=== PATIENT | female | born 1960 | race Caucasian/White ===

== ENCOUNTER → 2016-05-20 | Outpatient (CLI) | payer BC ==
[~2016-05-20] MED LIST: ADVIN50/60 INH; ALBU1AER9 INH; ASPI81TA28 PO; LORC1TAB PO; MONT1TAB3 PO; ONDA4TAB46 PO; TRAM-10 PO
== END | disposition home or self-care (01) ==
LOC: C.PAPS 14:59
PROVIDERS: ATTEND Obstetrics & Gynecology
DX: Z12.4 Encounter for screening for malignant neoplasm of cervix (principal); D25.9 Leiomyoma of uterus, unspecified

== ENCOUNTER → 2017-04-20 | Outpatient (CLI) | payer OTHER ==
[2017-04-20 13:50] LABS: INFLUENZA B ANTIGEN Neg for Influ B (NEG)
== END | disposition home or self-care (01) ==
LOC: C.LAB1850 11:42
PROVIDERS: ATTEND Internal Medicine Pulmonary Disease
DX: J11.1 Influenza due to unidentified influenza virus with other respiratory manifestations (principal)

== ENCOUNTER 2020-10-28 15:18 | Inpatient (IN) ==
[2020-10-28] MEDS ORDERED: methylPREDNISolone 125 MG/2 ML VIAL IV STA (16:13)
[2020-10-28] MEDS ORDERED: ALBUT/IPRATROP 3MG/0.5MG NEB 3 ML VIAL INH STA (16:13)
[2020-10-28] MEDS ORDERED: BENZONATATE 100 MG CAPSULE PO ONE (16:13)
[2020-10-28] MEDS ORDERED: SODIUM CHLORIDE 0.9% 1000ML 1,000 ML IV ONE (16:15)
[2020-10-28] MEDS ORDERED: ONDANSETRON INJ 2 MG/ML 2 ML VIAL IV STA (16:15)
--- NOTE | 2020-10-28 16:15 | Emergency Department Note ---
Impression & Plan Hypoxia, SOB (shortness of breath), Pneumonia, COVID-19 ED Provider Note NAME: PIERRE ARRIAGA AGE: 60 SEX: F : 1960 ARRIVES VIA: Walk-In INFORMANT: [Patient] ED PROVIDER(S): [Herbert Mckeon MD] CHIEF COMPLAINT: Nausea, vomiting, short of breath HISTORY OF PRESENT ILLNESS: The patient is a 60-year-old female who states that she began having some wheezing and cough and fever last week. She had an outpatient Covid test which was positive. She was given prednisone. The patient states the fever is gone but she is still coughing and wheezing. Her last prednisone dose was yesterday. She has also developed some nausea and vomiting. Patient does feel somewhat short of breath. The patient did receive 2 doses of Covid vaccine in June of this year, she states that she must be a breakthrough case of Covid. She states that she has friends that she was around who have also now tested positive for Covid. The patient is here because of the nausea, vomiting and increasing shortness of breath. She is wondering if she needs something more to care for her Covid infection. REVIEW OF SYSTEMS: See HPI for pertinent positives and negatives. A total of ten systems were reviewed and were otherwise negative. PMHx/PSHx: See Below SOCIAL HISTORY: See Below. PHYSICAL EXAM: GENERAL: Patient is in no acute distress. HEENT: No acute trauma, normocephalic atraumatic, mucous membranes moist, no nasal congestion, no scleral icterus. NECK: No stridor, no adenopathy, no meningismus, trachea is midline. LUNGS: Wheezes bilaterally, no rhonchi, no respiratory distress. HEART: Without murmurs gallops or rubs, regular rate and rhythm. ABDOMEN: Soft, nontender, bowel sounds positive, no hernias, no peritonitis. EXTREMITIES: No cyanosis or edema, full range of motion of all the joints without pain or difficulty, no signs for acute trauma. NEUROLOGIC: Oriented x 3, no acute motor or sensory deficits, no focal weakness. SKIN: No rash, no jaundice, no diaphoresis. DIFFERENTIAL DIAGNOSIS: Reactive airway disease, pneumonia, pneumothorax, COPD, COVID-19, CHF, infection, cardiac ischemia, pulmonary embolism, bronchitis, musculoskeletal, gastrointestinal, as well as other pathologies. EMERGENCY DEPARTMENT COURSE/PROCEDURES: ECG: Indication was shortness of breath. The ECG shows a normal sinus rhythm with a rate of 89. LVH is present. There is some poor R wave progression. There are some T wave inversion in the anterior leads. There is no ST elevation, no PVCs. The QTc is 438. Compared to an ECG from 24 March 2016, the anterior T wave changes have progressed. Continuous Cardiac Monitoring: An order was placed for continuous cardiac monitoring. The monitor shows a rate of 95 with normal sinus rhythm. Critical Care Note: I have personally spent 53 minutes of critical care time in the direct management of this patient. This includes bedside care, interpretation of diagnostic studies, and testing, discussion with consultants, patient, and family members, and other required patient management activities. This 53 minutes is in excess of all separately billable procedures. MEDICAL DECISION MAKING: There is no leukocytosis or concerning anemia. There is a normal platelet count. No coagulopathy. Sodium was low at 131, no kidney failure. No worrisome liver enzyme elevation. ECG showed a sinus rhythm, no acute ischemia. Cardiac enzyme testing x1 is not consistent with acute cardiac injury. Covid testing is negative. Chest film does show a bilateral patchy pneumonia. Chest CT shows the same pneumonia, no PE. The patient was given a DuoNeb, oral Tessalon, IV Solu-Medrol, IV Zofran and IV saline. The patient became hypoxic in the ED. Her O2 saturation dropped to 83%. She was placed on nasal cannula oxygen. The patient is in need of a hospital stay. She is hypoxic with Covid pneumonia. She does have underlying asthma. She is not safe for discharge home. I spoke to the patient and medical case manager. The on-call hospitalist was consulted. Past Med/Surg History Medical History Allergic rhinitis Arrhythmia Asthma uses prn inh 1 x wk Chronic cough Chronic dyspnea Cough variant asthma Esophageal reflux History of endometriosis Hoarseness or changing voice Obesity Seasonal allergies Surgical History History of cholecystectomy History of colonoscopy History of hemorrhoidectomy History of oral surgery History of tonsillectomy History of tooth extraction Family History Other Breast cancer Dyslipidemia Heart disease Hypertension Social History Smoking Status: Never smoker Second Hand Exposure: Yes (previous exposure as a child and used to smoke); Hx Alcohol Use: Yes Alcohol type: hard liquor Hx Substance Use: No Preferred Language: British Communication Ability: Effective Gas Blender Required: No Beliefs That Will Affect Care: None Current Living Situation: Spouse Feels Safe at Home: Yes Assistive Devices: None Allergies Allergies Allergy/AdvReac Type Severity Reaction Status Date / Time Penicillins Allergy Severe difficulty Verified 10/28/20 17:00 breathing,SOB Home Meds Home Medications Medication Instructions Recorded Confirmed cholecalciferol (vitamin D3) 50 1 tab PO QAM 02/13/18 10/28/20 mcg (2,000 unit) tablet (Vitamin D3) ascorbic acid (vitamin C) 1,000 mg 1 gm PO DAILY tab 06/14/19 10/28/20 tablet cyanocobalamin (vitamin B-12) 1,000 mcg PO DAILY 06/14/19 10/28/20 1,000 mcg capsule Previous Rx's Medication Instructions Recorded albuterol sulfate 90 mcg/actuation 2 puffs INHALATION Q6H PRN #18 gm 11/29/18 aerosol inhaler (Ventolin HFA) ipratropium 0.5 mg-albuterol 3 mg 3 ml INHALATION QID PRN #90 ml 01/11/20 (2.5 mg base)/3 mL nebulization soln nebulizers (AeroEclipse II #1 ea 01/11/20 Nebulizer) omeprazole 20 mg capsule,delayed 20 mg PO DAILY #30 cap 03/31/20 release fluticasone propionate 50 2 spray INTRANASAL DAILY #15.8 ml 07/16/20 mcg/actuation nasal spray,suspension (Flonase Allergy Relief) fluticasone furoate 100 1 inh INHALATION DAILY #60 ea 09/18/20 mcg-vilanterol 25 mcg/dose inhalation powder (Breo Ellipta) montelukast 10 mg tablet See Rx Instructions .ROUTE 09/18/20 .COMPLEX #30 tab Incentive Spirometer #1 ea 10/24/20 azithromycin 250 mg tablet See Rx Instructions PO .COMPLEX #6 10/24/20 tab Results & Data (ED) Vital Signs Vital Signs - 24 hr 10/28/20 15:23 10/28/20 16:41 10/28/20 17:00 Temperature 37 C Temperature Source Temporal Artery Scan Pulse Rate 95 H 91 H 92 H Pulse Rate [Left Finger] Pulse Rate from SpO2 Sensor 91 H 91 H Respiratory Rate 18 20 18 Respiratory Effort / Characteristics Non-Labored Spontaneous Respiratory Depth Normal Respiratory Pattern Regular Blood Pressure 164/94 H 119/81 118/82 Blood Pressure Mean 117 93 94 Blood Pressure Position Sitting Pulse Oximetry 94 93 96 Oxygen Delivery Method Room Air Oxygen Flow Rate Sepsis Recent Fever Within 48 Hours No Sepsis New/Unexplained Change in Mental Status N/A Sepsis Action Taken by Nursing No Action Required Oxygen Flow Rate - Titration Pulse Oximetry Post Tiitration 10/28/20 17:01 10/28/20 17:19 10/28/20 18:20 Temperature Temperature Source Pulse Rate Pulse Rate [Left Finger] 84 Pulse Rate from SpO2 Sensor Respiratory Rate 20 20 Respiratory Effort / Characteristics Non-Labored Non-Labored Spontaneous Respiratory Depth Respiratory Pattern Blood Pressure Blood Pressure Mean Blood Pressure Position Pulse Oximetry 93 100 83 L Oxygen Delivery Method Room Air Room Air Room Air Oxygen Flow Rate 0 Sepsis Recent Fever Within 48 Hours Sepsis New/Unexplained Change in Mental Status Sepsis Action Taken by Nursing Oxygen Flow Rate - Titration 2 Pulse Oximetry Post Tiitration 95 10/28/20 18:30 10/28/20 19:00 10/28/20 19:30 Temperature Temperature Source Pulse Rate 90 92 H 85 Pulse Rate [Left Finger] Pulse Rate from SpO2 Sensor 90 89 85 Respiratory Rate 21 17 19 Respiratory Effort / Characteristics Respiratory Depth Respiratory Pattern Blood Pressure 150/91 H 142/96 H 145/99 H Blood Pressure Mean 110 111 114 Blood Pressure Position Pulse Oximetry 87 L 95 96 Oxygen Delivery Method Room Air Nasal Cannula Nasal Cannula Oxygen Flow Rate 2 2 2 Sepsis Recent Fever Within 48 Hours Sepsis New/Unexplained Change in Mental Status Sepsis Action Taken by Nursing Oxygen Flow Rate - Titration Pulse Oximetry Post Tiitration Home Medications Current Medication List: was personally reviewed by me Laboratory Data Attestation: I reviewed the patient's lab results. Result diagrams: 10/28/20 16:46 10/28/20 16:46 Lab Results 10/28/20 10/28/20 10/28/20 Range/Units 16:23 16:23 16:46 WBC 5.56 (4.8-10.8) K/uL RBC 4.50 (4.2-5.4) M/uL Hgb 13.0 (12.0-16.0) g/dL Hct 38.9 (37-47) % MCV 86.4 (80-100) fL MCH 28.9 (25-34) pg MCHC 33.4 (32-36) g/dL RDW Std Deviation 45.2 (36.4-46.3) fL RDW Coeff of Evan 14.3 (11.5-14.5) % Plt Count 191 (130-400) K/uL MPV 8.8 (7.4-10.4) fL Immature Gran % (Auto) 0.2 % Neut % (Auto) 67.7 % Lymph % (Auto) 23.6 % [place] % (Auto) 8.1 % Eos % (Auto) 0.2 % Baso % (Auto) 0.2 % Neut # (Auto) 3.77 (1.4-6.5) K/uL Lymph # (Auto) 1.31 (1.2-3.4) K/uL [place] # (Auto) 0.45 (0.11-0.59) K/uL Eos # (Auto) 0.01 (0-0.5) K/uL Baso # (Auto) 0.01 (0-0.2) K/uL Immature Gran # (Auto) 0.01 (0.00-0.02) K/uL PT (9.0-12.0) Seconds INR (0.9-1.1) APTT (21.0-31.0) Seconds PTT Ratio Sodium (136-145) mmol/L Potassium (3.5-5.1) mmol/L Chloride (98-107) mmol/L Carbon Dioxide (21-32) mmol/L Anion Gap (3-11) BUN (7-18) mg/dl Creatinine (0.6-1.2) mg/dl Est Cr Clr Drug Dosing ml/min Est GFR ( Amer) ml/min Est GFR (Non-Af Amer) ml/min BUN/Creatinine Ratio (10-20) Glucose (70-99) mg/dl Calcium (8.5-10.1) mg/dl Magnesium (1.8-2.4) mg/dl Total Bilirubin (0.2-1) mg/dl AST (15-37) U/L ALT (12-78) U/L Alkaline Phosphatase (45-117) U/L Troponin I (0-0.045) ng/ml NT-Pro-B Natriuret Pep (0-900) pg/ml Total Protein (6.4-8.2) gm/dl Albumin (3.4-5.0) gm/dl Globulin (2.5-4.0) gm/dl Albumin/Globulin Ratio (0.9-2) COVID-19 Eval Order Covid19 at [facility] SARS-CoV-2 (PCR) POSITIVE A* (Negative) 10/28/20 10/28/20 Range/Units 16:46 17:41 WBC (4.8-10.8) K/uL RBC (4.2-5.4) M/uL Hgb (12.0-16.0) g/dL Hct (37-47) % MCV (80-100) fL MCH (25-34) pg MCHC (32-36) g/dL RDW Std Deviation (36.4-46.3) fL RDW Coeff of Evan (11.5-14.5) % Plt Count (130-400) K/uL MPV (7.4-10.4) fL Immature Gran % (Auto) % Neut % (Auto) % Lymph % (Auto) % [place] % (Auto) % Eos % (Auto) % Baso % (Auto) % Neut # (Auto) (1.4-6.5) K/uL Lymph # (Auto) (1.2-3.4) K/uL [place] # (Auto) (0.11-0.59) K/uL Eos # (Auto) (0-0.5) K/uL Baso # (Auto) (0-0.2) K/uL Immature Gran # (Auto) (0.00-0.02) K/uL PT 10.1 (9.0-12.0) Seconds INR 1.0 (0.9-1.1) APTT 28.2 (21.0-31.0) Seconds PTT Ratio 1.1 Sodium 131 L (136-145) mmol/L Potassium 3.5 (3.5-5.1) mmol/L Chloride 104 (98-107) mmol/L Carbon Dioxide 26 (21-32) mmol/L Anion Gap 1.0 L (3-11) BUN 6 L (7-18) mg/dl Creatinine 0.49 L (0.6-1.2) mg/dl Est Cr Clr Drug Dosing 157.9 ml/min Est GFR ( Amer) 121.9 ml/min Est GFR (Non-Af Amer) 105.2 ml/min BUN/Creatinine Ratio 13.1 (10-20) Glucose 111 H (70-99) mg/dl Calcium 8.0 L (8.5-10.1) mg/dl Magnesium 2.1 (1.8-2.4) mg/dl Total Bilirubin 0.8 (0.2-1) mg/dl AST 37 (15-37) U/L ALT 67 (12-78) U/L Alkaline Phosphatase 95 (45-117) U/L Troponin I < 0.015 (0-0.045) ng/ml NT-Pro-B Natriuret Pep 46 (0-900) pg/ml Total Protein 7.5 (6.4-8.2) gm/dl Albumin 3.4 (3.4-5.0) gm/dl Globulin 4.1 H (2.5-4.0) gm/dl Albumin/Globulin Ratio 0.8 L (0.9-2) COVID-19 Eval Order SARS-CoV-2 (PCR) (Negative) Administered Medications Discontinued Medications Albuterol (Albut/Ipratrop 3mg/0.5mg Neb 3 Ml Vial) 3 ml INH NOW STA Stop: 10/28/20 16:14 Last Admin: 10/28/20 17:19 Dose: 3 ml Documented by: [id number] Benzonatate (Benzonatate 100 Mg Capsule) 100 mg PO NOW ONE Stop: 10/28/20 16:14 Last Admin: 10/28/20 16:35 Dose: 100 mg Documented by: [id number] Sodium Chloride (Nss 1000ml) 1,000 mls @ 999 mls/hr IV .Q1H1M ONE Stop: 10/28/20 17:15 Last Infusion: 10/28/20 18:46 Dose: 0 mls/hr Documented by: [id number] Admin: 10/28/20 16:31 Dose: 999 mls/hr Documented by: [id number] Ioversol (Optiray 320 125ml) 118 ml IV ONCE ONE Stop: 10/28/20 19:41 Last Admin: 10/28/20 19:41 Dose: 118 ml Documented by: [id number] Methylprednisolone (Methylprednisolone 125 Mg/2 Ml Vial) 60 mg IV NOW STA Stop: 10/28/20 16:14 Last Admin: 10/28/20 16:32 Dose: 60 mg Documented by: [id number] Ondansetron HCl (Ondansetron Inj 2 Mg/Ml 2 Ml Vial) 4 mg IV NOW STA Stop: 10/28/20 16:16 Last Admin: 10/28/20 16:32 Dose: 4 mg Documented by: [id number] Imaging Data Radiologist's Impression: Chest X-Ray 10/28/20 16:13 XR chest 1V portable CLINICAL HISTORY: Shortness of breath. COMPARISON STUDY: Chest radiograph September 19, 2018. FINDINGS: Lung volumes are mildly diminished. There is no pneumothorax. No pleural effusion is identified. There is interstitial thickening with suspected mild bilateral airspace opacities. Note is made of cardiomegaly. IMPRESSION: 1. Interstitial thickening and suspected mild bilateral opacities. The findings could reflect an infectious process or pulmonary edema. Radiographic follow up to ensure resolution is recommended. 2. Cardiomegaly. ACT 112: Negative or not required by law. Electronically signed by: Manuel Domingo M.D. 10/28/2020 5:10 PM Chest CTA 10/28/20 17:28 CT ANGIOGRAPHY OF THE CHEST, PULMONARY EMBOLUS PROTOCOL CLINICAL HISTORY: Covid. Shortness of breath. Evaluate for pulmonary embolus. COMPARISON STUDY: Chest CT March 16, 2016. Chest radiograph performed earlier today. TECHNIQUE: Following IV administration of 118 mL of Optiray, helical axial images of the chest were obtained utilizing the pulmonary embolus protocol. Maximal intensity projections and sagittal and coronal reformats were viewed on an independent 3D workstation. IV contrast was administered without complication. Automated exposure control was utilized for the study. A dose lowering technique was utilized adhering to the principles of ALARA. CT DOSE: 490.22 mGycm FINDINGS: No pulmonary emboli are identified although the segmental and subsegmental pulmonary arteries within the lower lobes are suboptimally assessed due to respiratory motion. There is moderate cardiomegaly. No pericardial effusion is noted. No enlarged thoracic lymph nodes are present. There is no thoracic aortic dissection. Central pulmonary arteries are mildly dilated. Numerous ground glass opacities throughout the lungs are noted. The central airways are patent. No pneumothorax or pleural effusion is noted. There is a small hiatal hernia. IMPRESSION: 1. No pulmonary emboli identified although segmental and subsegmental pulmonary arteries within the lower lobes suboptimally assessed due to respiratory motion. 2. Groundglass opacities throughout the lungs consistent with viral pneumonia. 3. Moderate cardiomegaly. Mild dilatation of the central pulmonary arteries which raises the possibility of pulmonary arterial hypertension. ACT 112: Negative or not required by law. Electronically signed by: Manuel Domingo M.D. 10/28/2020 8:21 PM Discharge Plan Visit Data Chief Complaint: Vomiting Stated Complaint: COUGHING, VOMITING, COVID ED Provider: Herbert Mckeon Discharge Problem: Hypoxia, SOB (shortness of breath), Pneumonia, COVID-19 Patient Disposition: Admitted As Inpatient Condition: Fair Forms Stand Alone Forms: [facility] Prescriptions Prescriptions: No Action albuterol sulfate [Ventolin HFA] 90 mcg/actuation HFA aerosol inhaler 2 puffs INHALATION Q6H PRN (Reason: Shortness Of Breath) Qty: 18 RF: 5 ipratropium-albuterol 0.5 mg-3 mg(2.5 mg base)/3 mL solution for nebulization 3 ml inhalation QID PRN (Reason: wheezing) Qty: 90 RF: 0 (DME) AeroEclipse II Nebulizer Misc See Rx Instructions .ROUTE .MEDSUPPLY Qty: 1 RF: 0 omeprazole 20 mg capsule,delayed release(DR/EC) 20 mg PO DAILY Qty: 30 RF: 5 fluticasone propionate [Flonase Allergy Relief] 50 mcg/actuation spray,suspension 2 spray intranasal DAILY Qty: 15.8 RF: 2 montelukast 10 mg tablet See Rx Instructions .ROUTE .COMPLEX Qty: 30 RF: 3 Breo Ellipta 100-25 mcg/dose blister with device 1 inh inhalation DAILY Qty: 60 RF: 3 azithromycin 250 mg tablet See Rx Instructions PO .COMPLEX Qty: 6 RF: 0 (DME) Incentive Spirometer Misc See Rx Instructions .MEDSUPPLY Qty: 1 RF: 0 cyanocobalamin (vitamin B-12) 1,000 mcg capsule 1,000 mcg PO DAILY RF: 0 ascorbic acid (vitamin C) 1,000 mg tablet 1 gm PO DAILY RF: 0 cholecalciferol (vitamin D3) [Vitamin D3] 2,000 unit Tablet 1 tab PO QAM RF: 0 Referrals Referrals: Odell Waller MD [Primary Care Provider] -
[2020-10-28 16:56] LABS: Basophils # (auto) 0.01 K/uL (0-0.2); Basophils % (auto) 0.2 %; Eosinophils # (auto) 0.01 K/uL (0-0.5); Eosinophils % (auto) 0.2 %; Hematocrit (blood only) 38.9 % (37-47); Immature Granulocytes # (auto) 0.01 K/uL (0.00-0.02); Immature Granulocytes % (auto) 0.2 %; Lymphocytes # (auto) 1.31 K/uL (1.2-3.4); Lymphocytes % (auto) 23.6 %; Mean Corpuscular Hemoglobin 28.9 pg (25-34); Mean Corpuscular Hgb Conc 33.4 g/dL (32-36); Mean Corpuscular Volume 86.4 fL (80-100); Mean Platelet Volume 8.8 fL (7.4-10.4); Monocytes # (auto) 0.45 K/uL (0.11-0.59); Monocytes % (auto) 8.1 %; Neutrophils # (auto) 3.77 K/uL (1.4-6.5); Neutrophils % (auto) 67.7 %; Platelet Count 191 K/uL (130-400); RDW Coefficient of Variation 14.3 % (11.5-14.5); RDW Standard Deviation 45.2 fL (36.4-46.3); White Blood Count 5.56 K/uL (4.8-10.8)
--- NOTE | 2020-10-28 17:11 | XRay Report ---
XR chest 1V portable CLINICAL HISTORY: Shortness of breath. COMPARISON STUDY: Chest radiograph September 19, 2018. FINDINGS: Lung volumes are mildly diminished. There is no pneumothorax. No pleural effusion is identi fied. There is interstitial thickening with suspected mild bilateral airspace opacities. Note is made of cardiomegaly. IMPRESSION: 1. Interstitial thickening and suspected mild bilateral opacities. The findings could reflect an infe ctious process or pulmonary edema. Radiographic follow up to ensure resolution is recommended. 2. Cardiomegaly. ACT 112: Negative or not required by law. Electronically signed by: Manuel Domingo M.D. 10/28/2020 5:10 PM
[2020-10-28 17:17] LABS: Alanine Aminotransferase 67 U/L (12-78); Albumin Level 3.4 gm/dl (3.4-5.0); Aspartate Aminotransferase 37 U/L (15-37); BUN Creatinine Ratio 13.1 (10-20); Blood Urea Nitrogen 6 mg/dl (7-18); Carbon Dioxide 26 mmol/L (21-32); Chloride 104 mmol/L (98-107); Creatinine Clr Calc Pharmacy 157.9 ml/min; Est GFR (African American) 121.9 ml/min; Est GFR (Non-African American) 105.2 ml/min; Glucose 111 mg/dl (70-99); Magnesium 2.1 mg/dl (1.8-2.4); Potassium 3.5 mmol/L (3.5-5.1); Sodium 131 mmol/L (136-145)
[2020-10-28 17:22] LABS: Albumin Globulin Ratio 0.8 (0.9-2); Alkaline Phosphatase 95 U/L (45-117); Bilirubin,Total 0.8 mg/dl (0.2-1); Globulin 4.1 gm/dl (2.5-4.0); Total Protein 7.5 gm/dl (6.4-8.2); Troponin I < 0.015 ng/ml (0-0.045)
[2020-10-28 18:01] LABS: Partial Thromboplastin Ratio 1.1; Partial Thromboplastin Time 28.2 Seconds (21.0-31.0); Prothrombin Time 10.1 Seconds (9.0-12.0)
[2020-10-28] MEDS ORDERED: OPTIRAY 320 125ml IV ONE (19:40)
--- NOTE | 2020-10-28 20:22 | CT Scan Report ---
CT ANGIOGRAPHY OF THE CHEST, PULMONARY EMBOLUS PROTOCOL CLINICAL HISTORY: Covid. Shortness of breath. Evaluate for pulmonary embolus. COMPARISON STUDY: Chest CT March 16, 2016. Chest radiograph performed earlier today. TECHNIQUE: Following IV administration of 118 mL of Optiray, helical axial images of the chest were o btained utilizing the pulmonary embolus protocol. Maximal intensity projections and sagittal and cor onal reformats were viewed on an independent 3D workstation. IV contrast was administered without co mplication. Automated exposure control was utilized for the study. A dose lowering technique was ut ilized adhering to the principles of ALARA. CT DOSE: 490.22 mGycm FINDINGS: No pulmonary emboli are identified although the segmental and subsegmental pulmonary arter ies within the lower lobes are suboptimally assessed due to respiratory motion. There is moderate car diomegaly. No pericardial effusion is noted. No enlarged thoracic lymph nodes are present. There is n o thoracic aortic dissection. Central pulmonary arteries are mildly dilated. Numerous ground glass op acities throughout the lungs are noted. The central airways are patent. No pneumothorax or pleural ef fusion is noted. There is a small hiatal hernia. IMPRESSION: 1. No pulmonary emboli identified although segmental and subsegmental pulmonary arteries within the l ower lobes suboptimally assessed due to respiratory motion. 2. Groundglass opacities throughout the lungs consistent with viral pneumonia. 3. Moderate cardiomegaly. Mild dilatation of the central pulmonary arteries which raises the possibil ity of pulmonary arterial hypertension. ACT 112: Negative or not required by law. Electronically signed by: Manuel Domingo M.D. 10/28/2020 8:21 PM
[2020-10-28 20:29] LABS: NT Pro B Type Natriuretic Pept 46 pg/ml (0-900)
--- NOTE | 2020-10-28 20:34 | History & Physical Report ---
Date of Service October 28, 2020 Assessment & Plan (1) Acute hypoxemic respiratory failure due to COVID-19: Plan: Severe COVID-19 pneumonia Asthma exacerbation secondary to above Diarrhea rule out C. difficile given recent antibiotic Rx Medical telemetry Supplemental O2 Decadron and Remdesivir for severe COVID-19 pneumonia MDI RTC Pulmonary consult developed improvement Stool C. difficile DVT prophylaxis. Lovenox subcu Full code Text document was generated using [employer] voice recognition software. It may contain grammatical or spelling errors. Kindly contact undersigned for clarification of any documentation item in question. History of Present Illness Chief Complaint: Cough, shortness of breath, Covid Primary Care Provider: Odell Waller MD History obtained from patient and records. Medical history significant for bronchial asthma, GERD. Last week, patient noted junky cough symptoms, wheezing, with shortness of breath. Patient completed COVID-19 vaccination. History recent COVID-19 contact. No chest pain. Outpatient COVID-19 test from [facility] walk-in clinic was positive. Patient ordered prednisone and azithromycin. Junky cough currently clear but patient still wheezing. Diarrhea without abdominal pain. At the ER, O2 sats 80s at 1 point. Solu-Medrol given at the ER. Medical History as above Surgical History : Hemorrhoidectomy, cholecystectomy, BTL Family History : RA, heart disease Personal/Social history : Non-smoker, occasional EtOH intake, retired from [employer] Allergies Allergy/AdvReac Type Severity Reaction Status Date / Time Penicillins Allergy Severe difficulty Verified 10/28/20 17:00 breathing,SOB Home Medications Medication Instructions Recorded Confirmed Type cholecalciferol (vitamin D3) 50 1 tab PO QAM 02/13/18 10/28/20 History mcg (2,000 unit) tablet (Vitamin D3) albuterol sulfate 90 mcg/actuation 2 puffs INHALATION Q6H PRN #18 gm 11/29/18 10/28/20 Rx aerosol inhaler (Ventolin HFA) ascorbic acid (vitamin C) 1,000 mg 1 gm PO DAILY tab 06/14/19 10/28/20 History tablet cyanocobalamin (vitamin B-12) 1,000 mcg PO DAILY 06/14/19 10/28/20 History 1,000 mcg capsule ipratropium 0.5 mg-albuterol 3 mg 3 ml INHALATION QID PRN #90 ml 10/16/20 08/03/21 Rx (2.5 mg base)/3 mL nebulization soln nebulizers (AeroEclipse II #1 ea 01/11/20 07/15/20 Rx Nebulizer) omeprazole 20 mg capsule,delayed 20 mg PO DAILY #30 cap 03/31/20 10/28/20 Rx release fluticasone propionate 50 2 spray INTRANASAL DAILY #15.8 ml 07/16/20 10/28/20 Rx mcg/actuation nasal spray,suspension (Flonase Allergy Relief) fluticasone furoate 100 1 inh INHALATION DAILY #60 ea 09/18/20 10/28/20 Rx mcg-vilanterol 25 mcg/dose inhalation powder (Breo Ellipta) montelukast 10 mg tablet See Rx Instructions .ROUTE 09/18/20 10/28/20 Rx .COMPLEX #30 tab Incentive Spirometer #1 ea 10/24/20 Rx azithromycin 250 mg tablet See Rx Instructions PO .COMPLEX #6 10/24/20 10/28/20 Rx tab Past Med/Surg History Medical History Allergic rhinitis Arrhythmia Asthma uses prn inh 1 x wk Chronic cough Chronic dyspnea Cough variant asthma Esophageal reflux History of endometriosis Hoarseness or changing voice Obesity Seasonal allergies Surgical History History of cholecystectomy History of colonoscopy History of hemorrhoidectomy History of oral surgery History of tonsillectomy History of tooth extraction Family History Other Breast cancer Dyslipidemia Heart disease Hypertension Social History Smoking Status: Never smoker Second Hand Exposure: Yes (previous exposure as a child and used to smoke); Hx Alcohol Use: Yes Alcohol type: hard liquor Hx Substance Use: No Preferred Language: Greek Communication Ability: Effective Hide Inspector Required: No Beliefs That Will Affect Care: None Current Living Situation: Spouse Feels Safe at Home: Yes Safety Concerns: Feels Safe At This Time Assistive Devices: None Review of Systems Review of Systems: As per HPI, all 10 systems reviewed, all other ROS negative Physical Exam Physical Exam: GENERAL: Comfortable, slightly hard of hearing, slightly anxious, morbidly obese, no respiratory distress SKIN: Normal color, warm HEENT: Thompson palpebral conjunctivae, no ptosis, dry buccal mucosa NECK : Supple, short neck, no tenderness CHEST : Decreased breath sounds, no tenderness HEART : RRR, no obvious murmurs ABDOMEN: Some distention, nontender EXTREMITIES : Minimal LE swelling, no LE tenderness, no other conspicuous defo rmities noted NEUROLOGIC : Coherent, no facial asymmetry, no other gross focality Results & Data Results & Data ([facility]) Vital Signs (Past 12 Hours) Vital Signs Temp Pulse Pulse Resp BP Pulse Ox 10/28/20 19:30 85 19 145/99 H 96 10/28/20 19:00 92 H 17 142/96 H 95 10/28/20 18:30 90 21 150/91 H 87 L 10/28/20 18:20 83 L 10/28/20 17:19 84 20 100 10/28/20 17:01 20 93 10/28/20 17:00 92 H 18 118/82 96 10/28/20 16:41 91 H 20 119/81 93 10/28/20 15:23 37 C 95 H 18 164/94 H 94 Laboratory Results Laboratory Results WBC 5.56 K/uL (4.8-10.8) 10/28/20 16:46 RBC 4.50 M/uL (4.2-5.4) 10/28/20 16:46 Hgb 13.0 g/dL (12.0-16.0) 10/28/20 16:46 Hct 38.9 % (37-47) 10/28/20 16:46 MCV 86.4 fL (80-100) 10/28/20 16:46 MCH 28.9 pg (25-34) 10/28/20 16:46 MCHC 33.4 g/dL (32-36) 10/28/20 16:46 RDW Std Deviation 45.2 fL (36.4-46.3) 10/28/20 16:46 RDW Coeff of Evan 14.3 % (11.5-14.5) 10/28/20 16:46 Plt Count 191 K/uL (130-400) 10/28/20 16:46 MPV 8.8 fL (7.4-10.4) 10/28/20 16:46 Immature Gran % (Auto) 0.2 % 10/28/20 16:46 Neut % (Auto) 67.7 % 10/28/20 16:46 Lymph % (Auto) 23.6 % 10/28/20 16:46 Rankin % (Auto) 8.1 % 10/28/20 16:46 Eos % (Auto) 0.2 % 10/28/20 16:46 Baso % (Auto) 0.2 % 10/28/20 16:46 Neut # (Auto) 3.77 K/uL (1.4-6.5) 10/28/20 16:46 Lymph # (Auto) 1.31 K/uL (1.2-3.4) 10/28/20 16:46 Rankin # (Auto) 0.45 K/uL (0.11-0.59) 10/28/20 16:46 Eos # (Auto) 0.01 K/uL (0-0.5) 10/28/20 16:46 Baso # (Auto) 0.01 K/uL (0-0.2) 10/28/20 16:46 Immature Gran # (Auto) 0.01 K/uL (0.00-0.02) 10/28/20 16:46 PT 10.1 Seconds (9.0-12.0) 10/28/20 17:41 INR 1.0 (0.9-1.1) 10/28/20 17:41 APTT 28.2 Seconds (21.0-31.0) 10/28/20 17:41 PTT Ratio 1.1 10/28/20 17:41 Sodium 131 mmol/L (136-145) L 10/28/20 16:46 Potassium 3.5 mmol/L (3.5-5.1) 10/28/20 16:46 Chloride 104 mmol/L (98-107) 10/28/20 16:46 Carbon Dioxide 26 mmol/L (21-32) 10/28/20 16:46 Anion Gap 1.0 (3-11) L 10/28/20 16:46 BUN 6 mg/dl (7-18) L 10/28/20 16:46 Creatinine 0.49 mg/dl (0.6-1.2) L 10/28/20 16:46 Est Cr Clr Drug Dosing 157.9 ml/min 10/28/20 16:46 Est GFR ( Amer) 121.9 ml/min 10/28/20 16:46 Est GFR (Non-Af Amer) 105.2 ml/min 10/28/20 16:46 BUN/Creatinine Ratio 13.1 (10-20) 10/28/20 16:46 Glucose 111 mg/dl (70-99) H 10/28/20 16:46 Calcium 8.0 mg/dl (8.5-10.1) L 10/28/20 16:46 Magnesium 2.1 mg/dl (1.8-2.4) 10/28/20 16:46 Total Bilirubin 0.8 mg/dl (0.2-1) 10/28/20 16:46 AST 37 U/L (15-37) 10/28/20 16:46 ALT 67 U/L (12-78) 10/28/20 16:46 Alkaline Phosphatase 95 U/L (45-117) 10/28/20 16:46 Troponin I < 0.015 ng/ml (0-0.045) 10/28/20 16:46 NT-Pro-B Natriuret Pep 46 pg/ml (0-900) 10/28/20 16:46 Total Protein 7.5 gm/dl (6.4-8.2) 10/28/20 16:46 Albumin 3.4 gm/dl (3.4-5.0) 10/28/20 16:46 Globulin 4.1 gm/dl (2.5-4.0) H 10/28/20 16:46 Albumin/Globulin Ratio 0.8 (0.9-2) L 10/28/20 16:46 COVID-19 Eval Order Covid19 at [facility] 10/28/20 16:23 SARS-CoV-2 (PCR) POSITIVE (Negative) A* 10/28/20 16:23 Impressions Chest X-Ray 10/28/20 16:13 XR chest 1V portable CLINICAL HISTORY: Shortness of breath. COMPARISON STUDY: Chest radiograph September 19, 2018. FINDINGS: Lung volumes are mildly diminished. There is no pneumothorax. No pleural effusion is identified. There is interstitial thickening with suspected mild bilateral airspace opacities. Note is made of cardiomegaly. IMPRESSION: 1. Interstitial thickening and suspected mild bilateral opacities. The findings could reflect an infectious process or pulmonary edema. Radiographic follow up to ensure resolution is recommended. 2. Cardiomegaly. ACT 112: Negative or not required by law. Electronically signed by: Manuel Domingo M.D. 10/28/2020 5:10 PM Chest CTA 10/28/20 17:28 CT ANGIOGRAPHY OF THE CHEST, PULMONARY EMBOLUS PROTOCOL CLINICAL HISTORY: Covid. Shortness of breath. Evaluate for pulmonary embolus. COMPARISON STUDY: Chest CT March 16, 2016. Chest radiograph performed earlier today. TECHNIQUE: Following IV administration of 118 mL of Optiray, helical axial images of the chest were obtained utilizing the pulmonary embolus protocol. Maximal intensity projections and sagittal and coronal reformats were viewed on an independent 3D workstation. IV contrast was administered without complication. Automated exposure control was utilized for the study. A dose lowering technique was utilized adhering to the principles of ALARA. CT DOSE: 490.22 mGycm FINDINGS: No pulmonary emboli are identified although the segmental and subsegmental pulmonary arteries within the lower lobes are suboptimally assessed due to respiratory motion. There is moderate cardiomegaly. No pericardial effusion is noted. No enlarged thoracic lymph nodes are present. There is no thoracic aortic dissection. Central pulmonary arteries are mildly dilated. Numerous ground glass opacities throughout the lungs are noted. The central airways are patent. No pneumothorax or pleural effusion is noted. There is a small hiatal hernia. IMPRESSION: 1. No pulmonary emboli identified although segmental and subsegmental pulmonary arteries within the lower lobes suboptimally assessed due to respiratory motion. 2. Groundglass opacities throughout the lungs consistent with viral pneumonia. 3. Moderate cardiomegaly. Mild dilatation of the central pulmonary arteries which raises the possibility of pulmonary arterial hypertension. ACT 112: Negative or not required by law. Electronically signed by: Manuel Domingo M.D. 10/28/2020 8:21 PM Diagnostic Findings EKG as per my interpretation rate 90, NSR, normal axis, LVH, T wave abnormalities inferior and anterior leads
[2020-10-28] MEDS ORDERED: REMDESIVIR 200 MG in SODIUM CHLORIDE 0.9% 210 ML IV STA (20:42)
[2020-10-28] MEDS ORDERED: POTASSIUM CHLORIDE CRTAB 20 MEQ TABCR PO STA (20:42)
[2020-10-28] MEDS ORDERED: PROMETHAZINE HCL 12.5 MG in SODIUM CHLORIDE 0.9% 50 ML IV PRN (23:42)
[2020-10-28] MEDS ORDERED: oxyCODONE HCL IR 5 MG TAB (IMMEDIATE RELEASE) PO PRN (23:42)
[2020-10-29] MEDS ORDERED: POTASSIUM CHLORIDE 40 MEQ in SODIUM CHLORIDE 0.9% 1000ML 1,000 ML IV ONE
[2020-10-29] MEDS: MONTELUKAST SODIUM 10 MG TABLET PO SCH ×2 (00:56→19:33)
[2020-10-29] MEDS: SODIUM CHLORIDE 0.9% 10ML FLUSH IV SCH ×2 (00:56→19:33)
[2020-10-29] MEDS: LEVALBUTEROL TARTRATE 15 GM HFA.AER.AD INH SCH ×3 (07:16→10:06)
--- NOTE | 2020-10-29 08:24 | Pulmonary Consultation ---
Date of Consultation October 29, 2020 Assessment & Plan (1) Pneumonia: Laterality: bilateral Lung location: unspecified part of lung Pneumonia type: due to unspecified organism Qualified Code(s): J18.9 - Pneumonia, unspecified organism (2) COVID-19: (3) Acute hypoxemic respiratory failure due to COVID-19: CT chest 10/28/2020 personally reviewed: Bilateral patchy groundglass opacities appreciated especially in the left lower lobe Atelectasis bilateral lower lobes, Motion degraded study Cardiomegaly, no pleural effusion No mediastinal lymphadenopathy --Acute hypoxic respiratory failure Secondary to multilobar COVID-19 pneumonia COVID-19 PCR positive 10/28/2020 BNP: 46 No lymphopenia Procalcitonin negative CRP 2.28 Continue with O2 supplementation to keep oxygen saturation between 90-92% Awake proning will be helpful for the patient. --COVID-19 pneumonia Continue with remdesivir for 5 days Dexamethasone 6 mg for 10 days Monitor LFTs Plan: Continue with flutter valve, add guaifenesin. No indication for Tocilizumab currently Patient is saturating 94-95% on room air. Incentive spirometer has been added If the patient stays clinically well likely she can be discharged home. Would recommend continuing total 10 days of dexamethasone. Patient took 4 days of azithromycin. I will give 1 more dose of azithromycin to complete the course. QTC 438. Pulmonary will continue to follow peripherally. Call directly with any questions Please note the above document was generated using voice recognition software. It may contain grammatical, syntax or spelling errors.Any formal questions or concerns about the content, text or information contained within the body of this dictation should be directly addressed to the provider for clarification. History of Present Illness Attending Physician: Roge Serra MD History of Present Illness 60-year-old female past medical history of asthma present to the hospital with complaints of worsening shortness of breath and congestion going on since approximately a week. In the hospital patient was found to have COVID-19. Pulmonary were consulted for COVID-19 pneumonia Patient has been vaccinated back in June with Pfizer vaccine. At the time of examination patient was saturating 94-95% on room air. She says she is feeling better after coming to the hospital. She has been using flutter well and bringing up clear phlegm. Denies any hemoptysis. Denies any chest pain. She uses Breo inhaler on a daily basis for her asthma. No dysuria, or diarrhea. Patient was started on Z-Zack as an outpatient. She took 4 doses. Last dose would have been today. Social history: Non-smoker. Social alcohol. No birds or poultry nearby Allergies Allergy/AdvReac Type Severity Reaction Status Date / Time Penicillins Allergy Severe difficulty Verified 10/28/20 17:00 breathing,SOB Home Medications Medication Instructions Recorded Confirmed Type cholecalciferol (vitamin D3) 50 1 tab PO QAM 02/13/18 10/28/20 History mcg (2,000 unit) tablet (Vitamin D3) albuterol sulfate 90 mcg/actuation 2 puffs INHALATION Q6H PRN #18 gm 11/29/18 10/28/20 Rx aerosol inhaler (Ventolin HFA) ascorbic acid (vitamin C) 1,000 mg 1 gm PO DAILY tab 06/14/19 10/28/20 History tablet cyanocobalamin (vitamin B-12) 1,000 mcg PO DAILY 06/14/19 10/28/20 History 1,000 mcg capsule ipratropium 0.5 mg-albuterol 3 mg 3 ml INHALATION QID PRN #90 ml 01/11/20 10/28/20 Rx (2.5 mg base)/3 mL nebulization soln nebulizers (AeroEclipse II #1 ea 01/11/20 07/15/20 Rx Nebulizer) omeprazole 20 mg capsule,delayed 20 mg PO DAILY #30 cap 03/31/20 10/28/20 Rx release fluticasone propionate 50 2 spray INTRANASAL DAILY #15.8 ml 07/16/20 10/28/20 Rx mcg/actuation nasal spray,suspension (Flonase Allergy Relief) fluticasone furoate 100 1 inh INHALATION DAILY #60 ea 09/18/20 10/28/20 Rx mcg-vilanterol 25 mcg/dose inhalation powder (Breo Ellipta) montelukast 10 mg tablet See Rx Instructions .ROUTE 09/18/20 10/28/20 Rx .COMPLEX #30 tab Incentive Spirometer #1 ea 10/24/20 Rx azithromycin 250 mg tablet See Rx Instructions PO .COMPLEX #6 10/24/20 10/28/20 Rx tab Patient History Medical History Allergic rhinitis Arrhythmia Asthma uses prn inh 1 x wk Chronic cough Chronic dyspnea Cough variant asthma Esophageal reflux History of endometriosis Hoarseness or changing voice Obesity Seasonal allergies Surgical History History of cholecystectomy History of colonoscopy History of hemorrhoidectomy History of oral surgery History of tonsillectomy History of tooth extraction Family History Other Breast cancer Dyslipidemia Heart disease Hypertension Social History Smoking Status: Never smoker Second Hand Exposure: Yes (previous exposure as a child and used to smoke); Hx Alcohol Use: Yes Alcohol type: hard liquor Hx Substance Use: No Preferred Language: Cook Islander Communication Ability: Effective Animal Shelter Supervisor Required: No Beliefs That Will Affect Care: None Current Living Situation: Spouse Feels Safe at Home: Yes Safety Concerns: Feels Safe At This Time Assistive Devices: None Review of Systems Review of Systems: All systems reviewed & are unremarkable except as noted in HPI & below Physical Exam Physical Exam: Constitutional: No acute distress HEENT: EOMI, PERRLA Respiratory system: Decreased air entry bilaterally, no wheeze, rhonchi, positiv e crackles bilateral lower lobes CVS: S1-S2 positive, no murmurs or gallops Abdomen: Soft, nontender, nondistended, positive bowel sounds x4, obese Extremities: +2 pulses bilaterally radialis/ dorsalis pedis, no cyanosis, no edema Neuro: Awake alert oriented x3 Psych: Normal mood and affect G/U: No Morrison Skin: no rashes, warm and dry Lymphatic: no cervical or axillary lymphadenopathy Results & Data Results & Data ([facility]) Vital Signs (Past 12 Hours) Vital Signs Temp Pulse Pulse Resp BP Pulse Ox 10/29/20 08:00 36.7 C 100 H 18 138/70 95 10/29/20 07:18 80 18 94 10/29/20 03:17 36.8 C 70 17 124/77 94 10/29/20 00:30 18 97 10/28/20 23:42 36.8 C 87 18 147/87 H 96 10/28/20 22:47 78 10/28/20 21:47 78 18 143/88 H 93 10/28/20 21:30 96 H 15 94 10/28/20 21:00 80 18 94 10/28/20 20:30 86 17 94 10/29/20 08:12 10/29/20 08:12 PG Care Time/CCT Total # of Minutes Spent Total Time Spent with Patient: Total time spent is greater than 50% in coordination of care (as documented) at patient's floor/unit and/or counseling patient: [place] [address] Inpt Consult Level 3 Patient Type New Diagnoses Pneumonia J18.9 Laterality: bilateral Lung location: unspecified part of lung Pneumonia type: due to unspecified organism COVID-19 U07.1 Acute hypoxemic respiratory failure due to COVID-19 U07.1; J96.01
[2020-10-29 08:25] LABS: Hematocrit (blood only) 39.3 % (37-47); Lymphocytes # (auto) 0.99 K/uL (1.2-3.4); Lymphocytes % (auto) 30.7 %; Mean Corpuscular Hgb Conc 33.1 g/dL (32-36); Mean Corpuscular Volume 87.5 fL (80-100); Mean Platelet Volume 8.6 fL (7.4-10.4); Monocytes # (auto) 0.29 K/uL (0.11-0.59); Neutrophils # (auto) 1.94 K/uL (1.4-6.5); Neutrophils % (auto) 60.3 %; Platelet Count 210 K/uL (130-400); RDW Coefficient of Variation 14.4 % (11.5-14.5); RDW Standard Deviation 46.6 fL (36.4-46.3); Red Blood Count 4.49 M/uL (4.2-5.4); White Blood Count 3.22 K/uL (4.8-10.8)
[2020-10-29] MEDS ORDERED: LEVALBUTEROL TARTRATE 15 GM HFA.AER.AD INH PRN (08:38)
[2020-10-29 09:12] LABS: Albumin Globulin Ratio 0.8 (0.9-2); Albumin Level 3.2 gm/dl (3.4-5.0); BUN Creatinine Ratio 15.9 (10-20); Bilirubin,Total 0.7 mg/dl (0.2-1); Calcium 8.5 mg/dl (8.5-10.1); Creatinine Clr Calc Pharmacy 161.5 ml/min; Est GFR (African American) 123.6 ml/min; Est GFR (Non-African American) 106.6 ml/min; Globulin 4.1 gm/dl (2.5-4.0); Potassium 4.3 mmol/L (3.5-5.1); Total Protein 7.3 gm/dl (6.4-8.2)
[2020-10-29] MEDS: PANTOprazole 40 MG TAB PO SCH (09:41)
[2020-10-29] MEDS: FLUTICASONE PROPIONATE NA SPR 16 GM BTL SCH (09:42)
[2020-10-29] MEDS: dexAMETHasone 6 MG in SYRINGE 0 ML IV SCH (09:42)
[2020-10-29] MEDS: ENOXAPARIN INJ 40 MG/0.4 ML SYR SQ SCH (09:43)
[2020-10-29] MEDS: CYANOCOBALAMIN 500 MCG TABLET (VITAMIN B-12) PO SCH (09:43)
[2020-10-29] MEDS: FLUTICASONE/VILANTEROL 100/25MCG 14 PUFFS/INHALER INH SCH (09:43)
[2020-10-29] MEDS: guaiFENesin 600 MG TABCR PO SCH ×2 (09:44→19:33)
[2020-10-29] MEDS: ACETAMINOPHEN 325 MG TAB PO PRN ×2 (09:50→19:34)
[2020-10-29] MEDS ORDERED: AZITHROMYCIN 250 MG TAB PO ONE (14:18)
[2020-10-29] MEDS ORDERED: REMDESIVIR 100 MG in SODIUM CHLORIDE 0.9% 230 ML IV SCH (20:00)
[2020-10-30] MEDS: FLUTICASONE PROPIONATE NA SPR 16 GM BTL SCH (09:42)
[2020-10-30] MEDS: FLUTICASONE/VILANTEROL 100/25MCG 14 PUFFS/INHALER INH SCH (09:42)
[2020-10-30] MEDS: ENOXAPARIN INJ 40 MG/0.4 ML SYR SQ SCH (09:43)
[2020-10-30] MEDS: CYANOCOBALAMIN 500 MCG TABLET (VITAMIN B-12) PO SCH (09:44)
[2020-10-30] MEDS: guaiFENesin 600 MG TABCR PO SCH (09:45)
[2020-10-30] MEDS: PANTOprazole 40 MG TAB PO SCH (09:45)
[2020-10-30] MEDS: dexAMETHasone 6 MG in SYRINGE 0 ML IV SCH (09:49)
[2020-10-30 10:44] LABS: Basophils # (auto) 0.01 K/uL (0-0.2); Basophils % (auto) 0.2 %; Eosinophils # (auto) 0.02 K/uL (0-0.5); Eosinophils % (auto) 0.4 %; Hematocrit (blood only) 39.5 % (37-47); Hemoglobin 12.9 g/dL (12.0-16.0); Immature Granulocytes # (auto) 0.03 K/uL (0.00-0.02); Immature Granulocytes % (auto) 0.6 %; Lymphocytes # (auto) 2.24 K/uL (1.2-3.4); Lymphocytes % (auto) 41.6 %; Mean Corpuscular Hemoglobin 28.7 pg (25-34); Mean Corpuscular Hgb Conc 32.7 g/dL (32-36); Mean Corpuscular Volume 87.8 fL (80-100); Mean Platelet Volume 9.1 fL (7.4-10.4); Monocytes # (auto) 0.34 K/uL (0.11-0.59); Monocytes % (auto) 6.3 %; Neutrophils # (auto) 2.75 K/uL (1.4-6.5); Neutrophils % (auto) 50.9 %; Platelet Count 231 K/uL (130-400); RDW Coefficient of Variation 14.4 % (11.5-14.5); RDW Standard Deviation 46.1 fL (36.4-46.3); White Blood Count 5.39 K/uL (4.8-10.8)
[2020-10-30 11:10] LABS: Albumin Level 3.4 gm/dl (3.4-5.0); BUN Creatinine Ratio 18.9 (10-20); Bilirubin Direct 0.2 mg/dl (0-0.2); Calcium 8.7 mg/dl (8.5-10.1); Creatinine Clr Calc Pharmacy 129.6 ml/min; Est GFR (African American) 114.7 ml/min; Est GFR (Non-African American) 98.9 ml/min; Potassium 3.8 mmol/L (3.5-5.1)
[2020-10-30 11:13] LABS: Bilirubin,Total 0.6 mg/dl (0.2-1); Total Protein 7.4 gm/dl (6.4-8.2)
--- NOTE | 2020-10-30 16:13 | Discharge Summary ---
Date of Service October 30, 2020 Admission HPI Per Admitting Provider History obtained from patient and records. Medical history significant for bronchial asthma, GERD. Last week, patient noted junky cough symptoms, wheezing, with shortness of breath. Patient completed COVID-19 vaccination. History recent COVID-19 contact. No chest pain. Outpatient COVID-19 test from [facility] walk-in clinic was positive. Patient ordered prednisone and azithromycin. Junky cough currently clear but patient still wheezing. Diarrhea without abdominal pain. At the ER, O2 sats 80s at 1 point. Solu-Medrol given at the ER. 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 Admission Exam Per Admitting Provider GENERAL: Comfortable, slightly hard of hearing, slightly anxious, morbidly obese, no respiratory distress SKIN: Normal color, warm HEENT: [place] palpebral conjunctivae, no ptosis, dry buccal mucosa NECK : Supple, short neck, no tenderness CHEST : Decreased breath sounds, no tenderness HEART : RRR, no obvious murmurs ABDOMEN: Some distention, nontender EXTREMITIES : Minimal LE swelling, no LE tenderness, no other conspicuous deformities noted NEUROLOGIC : Coherent, no facial asymmetry, no other gross focality Principal Diagnosis Acute respiratory failure 2/2 covid pneumonia asthma Discharge Exam CONSTITUTIONAL: obese, vitals as above, generally well-appearing EYES: normal conjunctivae, no scleral icterus ENT: external ear and nose normal, MMM RESPIRATORY: clear to auscultation bilaterally, no crackles, rales or wheezes, normal respiratory effort CARDIOVASCULAR: regular rate and rhythm, S1 and 2 heard without murmurs, gallops or rubs, no JVD, no peripheral edema GASTROINTESTINAL: soft, nontender, nondistended MUSCULOSKELETAL: strength 5/5 throughout, head is normocephalic and atraumatic, neck supple, normal palpation of chest wall without tenderness, ambulating at baseline. SKIN: warm and dry NEUROLOGIC: CN 2-12 grossly intact, no sensory deficit, normal cognition, normal speech, no tremor PSYCHIATRIC: alert cooperative and oriented to person, place and time. E uthymic mood, makes good eye contact, language grossly intact, recent and remote memory grossly intact. Discharge Data Allergies Allergy/AdvReac Type Severity Reaction Status Date / Time Penicillins Allergy Severe difficulty Verified 10/28/20 17:00 breathing,SOB Consultations 10/28/20 19:12 ED Decision to Admit Stat 10/29/20 08:05 Consult Pulmonology Routine Ordered Studies Laboratory Results WBC 5.39 K/uL (4.8-10.8) 10/30/20 10:09 RBC 4.50 M/uL (4.2-5.4) 10/30/20 10:09 Hgb 12.9 g/dL (12.0-16.0) 10/30/20 10:09 Hct 39.5 % (37-47) 10/30/20 10:09 MCV 87.8 fL (80-100) 10/30/20 10:09 MCH 28.7 pg (25-34) 10/30/20 10:09 MCHC 32.7 g/dL (32-36) 10/30/20 10:09 RDW Std Deviation 46.1 fL (36.4-46.3) 10/30/20 10:09 RDW Coeff of Evan 14.4 % (11.5-14.5) 10/30/20 10:09 Plt Count 231 K/uL (130-400) 10/30/20 10:09 MPV 9.1 fL (7.4-10.4) 10/30/20 10:09 Immature Gran % (Auto) 0.6 % 10/30/20 10:09 Neut % (Auto) 50.9 % 10/30/20 10:09 Lymph % (Auto) 41.6 % 10/30/20 10:09 [place] % (Auto) 6.3 % 10/30/20 10:09 Eos % (Auto) 0.4 % 10/30/20 10:09 Baso % (Auto) 0.2 % 10/30/20 10:09 Neut # (Auto) 2.75 K/uL (1.4-6.5) 10/30/20 10:09 Lymph # (Auto) 2.24 K/uL (1.2-3.4) 10/30/20 10:09 [place] # (Auto) 0.34 K/uL (0.11-0.59) 10/30/20 10:09 Eos # (Auto) 0.02 K/uL (0-0.5) 10/30/20 10:09 Baso # (Auto) 0.01 K/uL (0-0.2) 10/30/20 10:09 Immature Gran # (Auto) 0.03 K/uL (0.00-0.02) H 10/30/20 10:09 PT 10.1 Seconds (9.0-12.0) 10/28/20 17:41 INR 1.0 (0.9-1.1) 10/28/20 17:41 APTT 28.2 Seconds (21.0-31.0) 10/28/20 17:41 PTT Ratio 1.1 10/28/20 17:41 Sodium 137 mmol/L (136-145) 10/30/20 10:09 Potassium 3.8 mmol/L (3.5-5.1) 10/30/20 10:09 Chloride 106 mmol/L (98-107) 10/30/20 10:09 Carbon Dioxide 28 mmol/L (21-32) 10/30/20 10:09 Anion Gap 3.0 (3-11) 10/30/20 10:09 BUN 11 mg/dl (7-18) 10/30/20 10:09 Creatinine 0.59 mg/dl (0.6-1.2) L 10/30/20 10:09 Est Cr Clr Drug Dosing 129.6 ml/min 10/30/20 10:09 Est GFR ( Amer) 114.7 ml/min 10/30/20 10:09 Est GFR (Non-Af Amer) 98.9 ml/min 10/30/20 10:09 BUN/Creatinine Ratio 18.9 (10-20) 10/30/20 10:09 Glucose 104 mg/dl (70-99) H 10/30/20 10:09 Calcium 8.7 mg/dl (8.5-10.1) 10/30/20 10:09 Magnesium 2.1 mg/dl (1.8-2.4) 10/28/20 16:46 Total Bilirubin 0.6 mg/dl (0.2-1) 10/30/20 10:09 Direct Bilirubin 0.2 mg/dl (0-0.2) 10/30/20 10:09 AST 30 U/L (15-37) 10/30/20 10:09 ALT 75 U/L (12-78) 10/30/20 10:09 Alkaline Phosphatase 85 U/L (45-117) 10/30/20 10:09 Troponin I < 0.015 ng/ml (0-0.045) 10/28/20 16:46 C-Reactive Protein 2.28 mg/dl (0-0.29) H 10/29/20 08:40 NT-Pro-B Natriuret Pep 46 pg/ml (0-900) 10/28/20 16:46 Total Protein 7.4 gm/dl (6.4-8.2) 10/30/20 10:09 Albumin 3.4 gm/dl (3.4-5.0) 10/30/20 10:09 Globulin 4.1 gm/dl (2.5-4.0) H 10/29/20 08:12 Albumin/Globulin Ratio 0.8 (0.9-2) L 10/29/20 08:12 Procalcitonin < 0.05 ng/ml (0-0.5) 10/29/20 08:40 COVID-19 Eval Order Covid19 at [facility] 10/28/20 16:23 SARS-CoV-2 (PCR) POSITIVE (Negative) A* 10/28/20 16:23 Impressions Chest X-Ray 10/28/20 16:13 XR chest 1V portable CLINICAL HISTORY: Shortness of breath. COMPARISON STUDY: Chest radiograph September 19, 2018. FINDINGS: Lung volumes are mildly diminished. There is no pneumothorax. No pleural effusion is identified. There is interstitial thickening with suspected mild bilateral airspace opacities. Note is made of cardiomegaly. IMPRESSION: 1. Interstitial thickening and suspected mild bilateral opacities. The findings could reflect an infectious process or pulmonary edema. Radiographic follow up to ensure resolution is recommended. 2. Cardiomegaly. ACT 112: Negative or not required by law. Electronically signed by: Manuel Domingo M.D. 10/28/2020 5:10 PM Chest CTA 10/28/20 17:28 CT ANGIOGRAPHY OF THE CHEST, PULMONARY EMBOLUS PROTOCOL CLINICAL HISTORY: Covid. Shortness of breath. Evaluate for pulmonary embolus. COMPARISON STUDY: Chest CT March 16, 2016. Chest radiograph performed earlier today. TECHNIQUE: Following IV administration of 118 mL of Optiray, helical axial images of the chest were obtained utilizing the pulmonary embolus protocol. Maximal intensity projections and sagittal and coronal reformats were viewed on an independent 3D workstation. IV contrast was administered without complic ation. Automated exposure control was utilized for the study. A dose lowering technique was utilized adhering to the principles of ALARA. CT DOSE: 490.22 mGycm FINDINGS: No pulmonary emboli are identified although the segmental and subsegmental pulmonary arteries within the lower lobes are suboptimally assessed due to respiratory motion. There is moderate cardiomegaly. No pericardial ef fusion is noted. No enlarged thoracic lymph nodes are present. There is no thoracic aortic dissection. Central pulmonary arteries are mildly dilated. Numerous ground glass opacities throughout the lungs are noted. The central airways are patent. No pneumothorax or pleural effusion is noted. There is a small hiatal hernia. IMPRESSION: 1. No pulmonary emboli identified although segmental and subsegmental pulmonary arteries within the lower lobes suboptimally assessed due to respiratory motion. 2. Groundglass opacities throughout the lungs consistent with viral pneumonia. 3. Moderate cardiomegaly. Mild dilatation of the central pulmonary arteries which raises the possibility of pulmonary arterial hypertension. ACT 112: Negative or not required by law. Electronically signed by: Manuel Domingo M.D. 10/28/2020 8:21 PM Hospital Course (1) COVID-19: (2) Acute respiratory failure due to COVID-19: The patient is a 60-year-old female who presented with acute hypoxic respiratory failure due to COVID-19 pneumonia. She was felt to have an asthma exacerbation secondary to the above. Oxygen supplementation was given and she was started on remdesivir and Decadron. Pulmonary toilet with flutter valve, incentive spirometry and Mucinex was given. The following day she was comfortable and not in respiratory distress off oxygen supplementation. Her wheezing and cough was notably improved. Pulmonology was consulted and recommended proning as tolerated. There was no indication for Tocilizumab. And azithromycin course was completed during this hospital stay for total of 5 days. Continuation of dexamethasone at discharge was recommended. At time of discharge she was mentating and ambulating at baseline and tolerating p.o. She was hemodynamically stable and afebrile and oxygenating well on room air. A two-step test was performed by respiratory therapy on 10/30 just prior to discharg e and she did not qualify for home oxygen. She was discharged in stable condition with close primary care follow-up recommended. Total Time Total Time Spent Total Time Spent (In Minutes): 60 Discharge Plan Discharge Items Patient Disposition: Home - Self-Care Reason For Visit: RESP FAILURE, COVID Discharge Diagnosis: Acute respiratory failure 2/2 covid pneumonia asthma Condition on Discharge: Good Activity: Resume your previous activity Non-emergency contact: Primary Care Provider Call non-emergency contact if: you have any medication questions, your symptoms worsen and your pain is not controlled Follow-up/Referrals: Odell Waller MD [Primary Care Provider] - Diet: Regular Addtl Attending Provider Instructions: Please take all medications as instructed on discharge list below. Please complete a short course of steroids as prescribed for you at discharge. It is recommended that you follow-up with your primary care physician within one week of discharge from the hospital stay. This will be to ensure you are still feeling well since returning home, and to review what took place during your hospital stay. It was a pleasure taking care of you! Please call if you have any questions or problems. You can reach a [facility] hospitalist on duty at [facility] 24 hours a day by calling [phone]. Take care of yourself. Sharona Salazar DO [facility] Hospitalist [employer] Coordinator Provider Instructions: Home Isolation COVID-19 Instructions The following information about Home Isolation is from the CDC Website: https://www.cdc.gov/coronavirus/2019-ncov/hcp/wvwkwuea-qetowtm-uinwtj.html Stay home except to get medical care People who are mildly ill with COVID-19 are able to isolate at home during their illness. You should restrict activities outside your home, except for getting medical care. Do not go to work, school, or public areas. Avoid using public transportation, ride-sharing, or taxis. Separate yourself from other people and animals in your home People: As much as possible, you should stay in a specific room and away from other people in your home. Also, you should use a separate bathroom, if available. Animals: You should restrict contact with pets and other animals while you are sick with COVID-19, just like you would around other people. Although there have not been reports of pets or other animals becoming sick with COVID-19, it is still recommended that people sick with COVID-19 limit contact with animals until more information is known about the virus. When possible, have another member of your household care for your animals while you are sick. If you are sick with COVID-19, avoid contact with your pet, including petting, snuggling, being kissed or licked, and sharing food. If you must care for your pet or be around animals while you are sick, wash your hands before and after you interact with pets and wear a face mask. Call ahead before visiting your doctor If you have a medical appointment, call the healthcare provider and tell them that you have or may have COVID-19. This will help the healthcare providers office take steps to keep other people from getting infected or exposed. Wear a face mask You should wear a face mask when you are around other people (e.g., sharing a room or vehicle) or pets and before you enter a healthcare providers office. If you are not able to wear a face mask (for example, because it causes trouble breathing), then people who live with you should not stay in the same room with you, or they should wear a face mask if they enter your room. Cover your coughs and sneezes Cover your mouth and nose with a tissue when you cough or sneeze. Throw used tissues in a lined trash can. Immediately wash your hands with soap and water for at least 20 seconds or, if soap and water are not available, clean your hands with an alcohol-based hand air cargo specialist that contains at least 60% alcohol. Clean your hands often Wash your hands often with soap and water for at least 20 seconds, especially after blowing your nose, coughing, or sneezing; going to the bathroom; and before eating or preparing food. If soap and water are not readily available, use an alcohol-based hand air cargo specialist with at least 60% alcohol, covering all surfaces of your hands and rubbing them together until they feel dry. Soap and water are the best option if hands are visibly dirty. Avoid touching your eyes, nose, and mouth with unwashed hands. Avoid sharing personal household items You should not share dishes, drinking glasses, cups, eating utensils, towels, or bedding with other people or pets in your home. After using these items, they should be washed thoroughly with soap and water. Clean all high-touch surfaces everyday High touch surfaces include counters, tabletops, doorknobs, bathroom fixtures, toilets, phones, keyboards, tablets, and bedside tables. Also, clean any surfaces that may have blood, stool, or body fluids on them. Use a household cleaning spray or wipe, according to the label instructions. Labels contain instructions for safe and effective use of the cleaning product including precautions you should take when applying the product, such as wearing gloves and making sure you have good ventilation during use of the product. Monitor your symptoms Seek prompt medical attention if your illness is worsening (e.g., difficulty breathing).Beforeseeking care, call your healthcare provider and tell them that you have, or are being evaluated for, COVID-19. Put on a face mask before you enter the facility. These steps will help the healthcare providers office to keep other people in the office or waiting room from getting infected or exposed. Ask your healthcare provider to call the local or state health department. Persons who are placed under active monitoring or facilitated self- monitoring should follow instructions provided by their local health department or occupational health professionals, as appropriate. When working with your local health department check their available hours. If you have a medical emergency and need to call 911, notify the dispatch personnel that you have, or are being evaluated for COVID-19. If possible, put on a face mask before emergency medical services arrive. Discontinuing home isolation Patients with confirmed COVID-19 should remain under home isolation precautions until the risk of secondary transmission to others is thought to be low. The decision to discontinue home isolation precautions should be made on a [id number] basis, in consultation with healthcare providers and [facility] and [facility] health departments. Pending Studies at Discharge: No Stand-Alone Forms: My [facility] Medications and DC Order Prescriptions: New dexamethasone 6 mg tablet 6 mg PO DAILY Qty: 7 RF: 0 Continued albuterol sulfate [Ventolin HFA] 90 mcg/actuation HFA aerosol inhaler 2 puffs INHALATION Q6H PRN (Reason: Shortness Of Breath) Qty: 18 RF: 5 ipratropium-albuterol 0.5 mg-3 mg(2.5 mg base)/3 mL solution for nebulization 3 ml inhalation QID PRN (Reason: wheezing) Qty: 90 RF: 0 (DME) AeroEclipse II Nebulizer Misc See Rx Instructions .ROUTE .MEDSUPPLY Qty: 1 RF: 0 omeprazole 20 mg capsule,delayed release(DR/EC) 20 mg PO DAILY Qty: 30 RF: 5 fluticasone propionate [Flonase Allergy Relief] 50 mcg/actuation spray,suspension 2 spray intranasal DAILY Qty: 15.8 RF: 2 montelukast 10 mg tablet See Rx Instructions .ROUTE .COMPLEX Qty: 30 RF: 3 Breo Ellipta 100-25 mcg/dose blister with device 1 inh inhalation DAILY Qty: 60 RF: 3 (DME) Incentive Spirometer Misc See Rx Instructions .MEDSUPPLY Qty: 1 RF: 0 cyanocobalamin (vitamin B-12) 1,000 mcg capsule 1,000 mcg PO DAILY RF: 0 ascorbic acid (vitamin C) 1,000 mg tablet 1 gm PO DAILY RF: 0 cholecalciferol (vitamin D3) [Vitamin D3] 2,000 unit Tablet 1 tab PO QAM RF: 0 Discontinued azithromycin 250 mg tablet See Rx Instructions PO .COMPLEX Qty: 6 RF: 0 Discharge Orders: Discharge Order (Routine); Ordered 10/30/20 Ordered By: Sharona Salazar Admission Data Admit Date/Time: 10/28/20 20:37 Attending Provider: Sharona Salazar Admit Provider: Germán Moya Primary Care Provider: Odell Waller Other Providers: Germán Moya ; Negin Park Other Interventions: Discharge Summary Assessment (RN) Last Done: 10/30/20 16:48
--- NOTE | 2020-10-30 21:03 | Hospitalist Progress Note ---
Date of Service October 30, 2020 Entry Date of service October 29, 2020 Assessment & Plan (1) Acute hypoxemic respiratory failure due to COVID-19: Plan: Severe COVID-19 pneumonia Asthma exacerbation secondary to above --Improving Off oxygen supplement --Continue remdesivir and Decadron --Continue with flutter valve, incentive spirometry, Mucinex --Monitor closely Lovenox for DVT prophylaxis Admission and Anticipated Discharge Date Admission Date: October 28, 2020 Subjective Follow-up for Covid pneumonia Seen resting in bed, comfortable, not in distress off oxygen supplement She feels better overall Wheezing and cough significantly improved Chest pain, leg pain No headache, dizziness, abdominal pain, nausea vomiting No other symptoms Review of Systems Review of Systems: All noted, negative except for above Physical Exam Physical Exam: General- oriented x 3, not in distress, speaks in sentences with no effort or accessory muscle use Head- atraumatic Eyes- PERRL, EOMI, anicteric ENT- oropharynx clear Neck- supple, no JVD, no adenopathy, no thyromegaly; carotids +2/2, no bruits appreciated Lungs- clear to auscultation bilaterally, no rales/wheezes Heart- normal rate, regular rhythm; no murmur, no gallop, no rub appreciated Abdomen- normal bowel sounds, nondistended, soft, nontender, no masses or hepatosplenomegaly Extremities- no pretibial edema, no calf tenderness; peripheral pulses intact Neuro- alert, oriented x 3; CN 2-12 grossly intact; motor 5/5 bilaterally;sensation 100% on all extremities; no other gross focal neurologic deficits Skin- warm & dry Results & Data Results & Data ([facility]) Vital Signs (Past 12 Hours) Vital Signs Temp Pulse Pulse Pulse Pulse Resp Resp 10/30/20 16:48 36.5 C 68 18 10/30/20 16:18 36.5 C 68 18 10/30/20 15:42 75 68 74 20 Resp Resp BP BP Pulse Ox Pulse Ox Pulse Ox 10/30/20 16:48 135/80 152/82 H 94 10/30/20 16:18 135/80 94 10/30/20 15:42 18 18 94 95 Pulse Ox 10/30/20 16:48 10/30/20 16:18 10/30/20 15:42 92
--- NOTE | 2020-10-31 06:15 | Electrocardiogram Report ---
Test Reason : Blood Pressure : / mmHG Vent. Rate : 089 BPM Atrial Rate : 089 BPM P-R Int : 140 ms QRS Dur : 086 ms QT Int : 360 ms P-R-T Axes : -04 013 005 degrees QTc Int : 438 ms Poor data quality, interpretation may be adversely affected Normal sinus rhythm Minimal voltage criteria for LVH, may be normal variant T wave abnormality, consider anterior ischemia Abnormal ECG When compared with ECG of 24-MAR-2016 17:32, T wave inversion now evident in Anterior leads Confirmed by Jose L Lee ([id number]) on 10/31/2020 6:14:53 AM Referred By: REFERRED SELF Confirmed By:Jose L Lee
== END 2020-10-30 17:51 | disposition home or self-care (01) | DRG 177 ==
LOC: ED 15:18 → SUATTDRO 20:37 → 2S 20:37 → 2W 10-29 17:48